=== PATIENT | male | born 1975 | race Caucasian/White ===

== ENCOUNTER 2022-12-14 10:29 | Day surgery (SDC) | payer OTHER ==
[~2022-12-14] VITALS: Ht 172.7 cm; Wt 90.7 kg
[2022-12-14] MEDS ORDERED: fentaNYL citrate 0.05 MG/ML VIAL ONE (12:33)
[2022-12-14] MEDS ORDERED: LIDOCAINE 2% 100 MG/5 ML UJET TP ONE (12:33)
[2022-12-14] MEDS ORDERED: MIDAZOLAM 5 MG/5 ML VIAL ONE (12:33)
[2022-12-14] MEDS ORDERED: diphenhydrAMINE 50 MG/ML VIAL ONE (13:12)
[2022-12-14] MEDS ORDERED: fentaNYL citrate 0.05 MG/ML VIAL IVP ONE (13:30)
[2022-12-14] MEDS ORDERED: MIDAZOLAM 5 MG/5 ML VIAL IV ONE (13:30)
[2022-12-14] MEDS ORDERED: diphenhydrAMINE 50 MG/ML VIAL IVP ONE (13:30)
== END 2022-12-14 13:40 | disposition home or self-care (01) ==
LOC: MDS 10:29 → MMU 10:52 → MDS 13:40
PROVIDERS: ATTEND Internal Medicine Gastroenterology
DX: Z12.11 Encounter for screening for malignant neoplasm of colon (principal); D12.4 Benign neoplasm of descending colon; D12.8 Benign neoplasm of rectum; E78.5 Hyperlipidemia, unspecified; E11.9 Type 2 diabetes mellitus without complications; F17.210 Nicotine dependence, cigarettes, uncomplicated; R74.01 Elevation of levels of liver transaminase levels; Z79.84 Long term (current) use of oral hypoglycemic drugs; Z79.899 Other long term (current) drug therapy
CPT/HCPCS: 45380; 45385; J1200; J2250; J3010

== ENCOUNTER 2023-11-15 10:38 | Day surgery (SDC) | payer OTHER ==
[~2023-11-15] VITALS: Ht 172.7 cm; Wt 88.5 kg
[2023-11-15] MEDS ORDERED: fentaNYL citrate 0.05 MG/ML VIAL ONE ×2 (11:33→11:55)
[2023-11-15] MEDS ORDERED: LIDOCAINE 2% 100 MG/5 ML UJET TP ONE (11:34)
[2023-11-15] MEDS: fentaNYL citrate 0.05 MG/ML VIAL IVP ONE (12:33)
[2023-11-15] MEDS: LIDOCAINE 2% 100 MG/5 ML UJET TP ONE (12:37)
== END 2023-11-15 13:32 | disposition home or self-care (01) ==
LOC: MDS 10:38 → MMU 10:40 → MDS 13:32
PROVIDERS: ATTEND Internal Medicine Gastroenterology
DX: Z09 Encounter for follow-up examination after completed treatment for conditions other than malignant neoplasm (principal); K57.30 Diverticulosis of large intestine without perforation or abscess without bleeding; K75.81 Nonalcoholic steatohepatitis (NASH); E11.9 Type 2 diabetes mellitus without complications; Z79.899 Other long term (current) drug therapy; Z98.890 Other specified postprocedural states
CPT/HCPCS: 45378; J3010; 82948